=== PATIENT | male | born 1960 | race Caucasian/White ===

== ENCOUNTER → 2023-12-06 11:24 | Outpatient (REF) | payer OTHER, SELFPAY | LOC: PAVMRI 11:24 | PROVIDERS: ATTENDING PHYSICIAN Emergency Medicine | DX: M54.9 Dorsalgia, unspecified (principal); R10.9 Unspecified abdominal pain | CPT/HCPCS: 72157; A9575 ==

== ENCOUNTER → 2024-01-17 11:30 | Outpatient (REF) | payer OTHER, SELFPAY | LOC: RAD 11:30 | PROVIDERS: ATTENDING PHYSICIAN Emergency Medicine | DX: R91.1 Solitary pulmonary nodule (principal) | CPT/HCPCS: 71260; Q9967 ==

== ENCOUNTER → 2024-02-17 06:33 | Day surgery (SDC) | payer OTHER, SELFPAY | LOC: GI 06:33 | PROVIDERS: ATTENDING PHYSICIAN Internal Medicine Gastroenterology | DX: Z12.11 Encounter for screening for malignant neoplasm of colon (principal); Z86.010 Personal history of colon polyps; K57.30 Diverticulosis of large intestine without perforation or abscess without bleeding; D12.0 Benign neoplasm of cecum; K62.1 Rectal polyp; R10.13 Epigastric pain; K21.00 Gastro-esophageal reflux disease with esophagitis, without bleeding; K44.9 Diaphragmatic hernia without obstruction or gangrene; K31.7 Polyp of stomach and duodenum; K22.89 Other specified disease of esophagus | CPT/HCPCS: 45380; 43239; 88305; 88342 ==

== ENCOUNTER 2024-03-14 20:39 | Emergency (ER) | payer OTHER, SELFPAY ==
[2024-03-14 20:44] VITALS: BP 135/78
--- NOTE | 2024-03-14 22:50 | ED.GENMED ---
History of Present Illness
General
Chief Complaint: Eye Problems
Time Seen by Provider: 03/14/24 21:11
Travel History
Have you had any contact with someone who has COVID-19?: No
Do you have any symptoms of coronavirus? Fever > 100 degrees, chills, cough, shortness of breath, sore throat, loss of taste or smell, muscle aches, or headache?: No
History of Present Illness
History of Present Illness:
63-year-old male presents the emergency department for evaluation of left eye discomfort that began after mowing the lawn. He states he was seated inside and the pain began. He attempted to flush out the eye but the symptom persisted. While
waiting for evaluation in the emergency department he noted that symptoms resolved. Currently he denies any complaints. No vision changes. Does not wear contacts. No direct eye trauma.
Past History
Past History
ED Past Medical History: HTN
ED Past Surgical History: Appendectomy and Other (oral surgery)
Social History
Tobacco: Non-smoker
Alcohol: Chronic alcoholic
Drug: None
Personal:
Living: with family
Employment: Employed
Review of Systems
Review of Systems
Allergies reviewed?: Yes
All Other Systems: ROS reviewed and negative except as documented in HPI and ROS
Phy Exam
Physical Exam
Physical Exam:
GEN: Well appearing, NAD, WDWN
HEENT: No scleral icterus or injection bilaterally. Left eye shows no hyphema or hypopyon. No focal fluorescein dye uptake on the left, normal extraocular motion bilaterally oral mucosa moist
Cardiac: Regular rate
Lung: No respiratory distress, no tachypnea
MSK: No gross deformity or injuries
Skin: Good color, no pallor or jaundice, no rashes
Neuro: AO x3, moves all extremities freely
Psych: Calm, cooperative
Course
Orders/Labs/Results
Orders:
Orders
06/05/24 22:59
Fluorescein Sodium [Ful-Denisse] 1 mg .ROUTE .STK-MED ONE
Vital Signs
Initial and Last Documented VS:
Initial Vital Signs
Temp Pulse Resp BP Pulse Ox
98.3 F 63 18 135/78 96
03/14/24 20:44 03/14/24 20:44 03/14/24 20:44 03/14/24 20:44 03/14/24 20:44
Last Documented Vital Signs
Temp Pulse Resp BP Pulse Ox
98.3 F 55 20 130/71 96
03/14/24 20:44 03/14/24 22:54 03/14/24 22:54 03/14/24 22:54 03/14/24 22:54
MDM/Problems Addressed
MDM/Problems Addressed:
Ocular exam is unremarkable. Patient's symptoms have resolved. Likely transient conjunctival foreign body
*Critical Care Note
Total Time (30-74mins, 75-104mins- exclusive of procedures): Not Applicable
ED Attending Note
-
Portions of this chart may have been created with voice recognition software.� Occasional wrong word or��sound alike� substitutions may have occurred due to the inherent limitations of voice recognition software.
Discharge Plan
Departure
Patient Disposition: Home (Routine Discharge)
Date of Disposition: 03/14/24
Time of Disposition: 22:50
Patient with high blood pressure during this ER visit?: No
Discharge Problem:
Acute left eye pain
Instructions: Foreign Body in Eye (DC)
Prescriptions:
New
erythromycin 5 mg/gram (0.5 %) ointment
1 applic ophthalmic (eye) QID 5 Days Qty: 3.5 0RF
No Action
hydrocodone-acetaminophen 5 MG/500 MG tablet
1 tab PO Q4HPRN PRN (Reason: PAIN) Qty: 25 0RF
Referrals:
Mago Barahona MD [Family Provider] -
Interventions
Interventions:
*Risk Screen - Suicide Last Done: 03/14/24 20:44
*General Assessment Last Done: 03/14/24 20:44
*Neglect/Abuse Screening Last Done: 03/14/24 20:44
ED- Fall Risk Assessment Last Done: 03/14/24 22:55
*ED COVID-19 Vaccine History Last Done: 03/14/24 22:55
*Nursing Disposition Last Done: 03/14/24 22:55
Discharge Date and Time
Discharge Date/Time: 03/14/24 22:55
Print Language: CYPRIOT
[2024-03-14 22:54] VITALS: BP 130/71
== END 2024-03-14 22:55 | disposition home or self-care (01) ==
LOC: EMR 20:39
PROVIDERS: EMERGENCY PHYSICIAN Emergency Medicine; FAMILY PHYSICIAN Emergency Medicine
DX: H57.12 Ocular pain, left eye (principal); I10 Essential (primary) hypertension; Z90.49 Acquired absence of other specified parts of digestive tract
CPT/HCPCS: 99282

== ENCOUNTER → 2025-02-19 15:44 | Outpatient (REF) | payer OTHER, SELFPAY | LOC: RCS 15:44 | PROVIDERS: ATTENDING PHYSICIAN Internal Medicine; FAMILY PHYSICIAN Emergency Medicine | DX: I35.1 Nonrheumatic aortic (valve) insufficiency (principal) | CPT/HCPCS: 93306 ==